=== PATIENT | female | born 1955 | race Caucasian/White ===

== ENCOUNTER 2016-07-16 19:38 | Emergency (ER) | payer OTHER ==
[~2016-07-16] VITALS: Ht 167.6 cm; Wt 63.5 kg
[~2016-07-16 19:38] MED LIST: AZITHROMYCIN250 MG ORAL
[2016-07-16 19:59] VITALS: BP 101/61
[2016-07-16] MEDS ORDERED: TdaP Vaccine 0.5ml Syr IM ONE (20:00)
[2016-07-16] MEDS ORDERED: Lidocaine 1% MPF 10mg/ml 5ml INJ ONE (20:00)
[2016-07-16] MEDS ORDERED: Bacitracin Oint UD TOPIC ONE (20:00)
[2016-07-16 20:49] VITALS: BP 109/67
[2016-07-16 21:03] VITALS: BP 101/61
--- NOTE | 2016-07-16 22:20 | Emergency Room Report ---
History of Present Illness General Chief Complaint: Laceration Source: Patient Present Illness HPI The patient is a 60-year-old female presenting with left index finger laceration which occurred today. Patient states that she was using a new knife which slipped. Patient noticed pain and bleeding of the index finger. Pain is described as a 10/10 sharp sensation it does not radiate from the area. The patient denies numbness or tingling of the finger. The patient denies any other symptoms. Patient is unsure of last tetanus shot Allergies: Coded Allergies: PENICILLINS (Verified Allergy, Intermediate, 11/16/14) Patient History Past Medical History: see triage record Pertinent Family History: none Now: No Reviewed Nursing Documentation: PMH: Agreed, PSxH: Agreed Nursing Documentation-PMH Past Medical History: No Stated History Review of Systems All Other Systems: negative except mentioned in HPI Physical Exam Vital Signs Date Time Temp Pulse Resp B/P Pulse Ox O2 Delivery O2 Flow Rate FiO2 07/16/16 19:45 97.2 71 15 101/61 97 Room Air Sp02 EP Interpretation: reviewed, normal General Appearance: no apparent distress, alert, GCS 15, non-toxic Head: normocephalic, atraumatic Eyes: bilateral eye PERRL, bilateral eye normal inspection Musculoskeletal: gait/station normal, normal range of motion, tender - TTP over L 2nd distal phalanx Neurologic: alert, oriented x3, responsive, motor strength/tone normal, sensory intact, speech normal Psychiatric: judgement/insight normal, memory normal, mood/affect normal, no suicidal/homicidal ideation Skin: warm/dry, normal turgor, laceration - 2cm linear lac to L hand distal 2nd digit Lymphatic: no adenopathy Procedures Laceration/Wound Repair Laceration/Wound Repair : Consent: Verbal Wound Location: upper extremity - L index finger Wound's Depth, Shape: superficial, linear Wound Length (cm): 2 Wound Explored: clean Irrigated w/ Saline (ccs): 100 Betadine Prep?: Yes Anesthesia: 1% Lidocaine - digital block Volume Anesthetic (ccs): 4 Wound Debrided: minimal Wound Repaired With: sutures Suture Size/Type: 5:0, proline Number of Sutures: 3 Layer Closure?: No Sterile Dressing Applied?: Yes Splint Applied?: No Sling Applied?: No Patient Tolerated: Well Complications: None Medical Decision Making PA Attestation Dr. Resendiz is my supervising physician. Patient management was discussed with my supervising physician Diagnostic Impression: Primary Impression: Laceration ER Course The patient is a 60-year-old female presenting with left index finger laceration which occurred today Ddx considered include but not limited to fracture, tendon/ligament injury, avulsion, nerve damage Physical exam: Vitals within normal limits. Left hand: There is a 2 cm linear laceration to the left second digit distal to PIP joint of dorsal hand. No active bleeding. Sensation intact to light touch. Full active range of motion. nail not involved. Patient is given tetanus shot The wound was irrigated with normal saline and cleaned with betadine. A 27g needle was used to administer 4mL of lidocaine without epinephrine was used for digital block. 3 sutures were placed with 5-0 Prolene. The wound was well approximated and the patient tolerated the procedure well. The wound was then cleaned and bacitracin was applied. The patient will be discharged home and given ER precautions. Patient will see primary care physician for suture removal. Last Vital Signs Date Time Temp Pulse Resp B/P Pulse Ox O2 Delivery O2 Flow Rate FiO2 07/16/16 21:03 97.2 76 15 101/61 97 Room Air Status: improved Disposition: HOME, SELF-CARE Condition: Improved Referrals: [employer] [facility],REFERRIN (PCP) Patient Instructions: Laceration Care, Adult Additional Instructions: I discussed my findings with the patient. All questions and concerns have been answered. Treatment and medication compliance have been addressed. I advised the patient that they need to follow up with PMD in 7 days for wound check and suture removal. If you are unable to see PMD, return to the ED in 7 days. Return to ED if pain remains or worsens, you notice discharge from the wound, the wound continues to bleed, the suture/s fall out, you notice a fever or chills, or for any reason. Patient is advised to keep the wound clean and dry. TREASURE SKAGGS Jul 16, 2016 22:20
== END 2016-07-16 21:03 | disposition home or self-care (01) ==
LOC: EMR 20:14
DX: S61.211A Laceration without foreign body of left index finger without damage to nail, initial encounter (principal); W26.0XXA Contact with knife, initial encounter; Y93.9 Activity, unspecified; Y92.9 Unspecified place or not applicable; Z88.0 Allergy status to penicillin
CPT/HCPCS: 12001; 90471; 90715; 99284; Z7502

== ENCOUNTER 2016-07-25 20:15 | Emergency (ER) | payer OTHER ==
[~2016-07-25] VITALS: Ht 165.1 cm; Wt 68.0 kg
[2016-07-25 20:32] VITALS: BP 109/67
[2016-07-25 20:50] VITALS: BP 109/67
--- NOTE | 2016-07-26 13:37 | Emergency Room Report ---
History of Present Illness General Chief Complaint: Wound Recheck/Suture Removal Source: Patient Present Illness HPI Patient is a 60-year-old female who presented after a recent laceration repair. The patient reported having some continued pain numbness to her tip of her finger. She denied any fever. She had not been having any discharge from the wound. Patient had sutures placed approximately 9 days ago. She presented for suture removal. Allergies: Coded Allergies: PENICILLINS (Verified Allergy, Intermediate, 11/16/14) Patient History Past Medical History: see triage record Now: No Reviewed Nursing Documentation: PMH: Agreed, PSxH: Agreed Nursing Documentation-PMH Past Medical History: No Stated History Review of Systems All Other Systems: negative except mentioned in HPI Physical Exam Vital Signs Date Time Temp Pulse Resp B/P Pulse Ox O2 Delivery O2 Flow Rate FiO2 07/25/16 20:28 97.5 63 18 109/67 99 Room Air General Appearance: well appearing, no apparent distress, alert, GCS 15 Head: normocephalic, atraumatic ENT: hearing grossly normal, normal voice Neck: full range of motion, supple Respiratory: no respiratory distress, speaking full sentences Cardiovascular #1: normal inspection Gastrointestinal: normal inspection Musculoskeletal: no calf tenderness Neurologic: normal inspection, alert, oriented x3, responsive, normal gait Psychiatric: mood/affect normal Skin: normal inspection, no rash, other - healed wound, no discharge or erythema Medical Decision Making Diagnostic Impression: Primary Impression: Encounter for removal of sutures ER Course Patient presented for wound check. Differential diagnosis included was not limited to infected wound, nonhealed wound, neuroma, healed wound. Patient's benign exam and does not appear to require any further imaging or laboratory testing at this time. Patient's wound appears to be well-healed Sutures were removed by me. The patient was advised to continue to care for the wound and to return if there were any problems. Last Vital Signs Date Time Temp Pulse Resp B/P Pulse Ox O2 Delivery O2 Flow Rate FiO2 07/25/16 20:50 97.5 79 18 109/67 99 Room Air Status: improved Disposition: HOME, SELF-CARE Condition: Stable Referrals: NON PHYSICIAN (PCP) Patient Instructions: Suture Removal, Care After Dale Sweeney Jul 26, 2016 13:37
== END 2016-07-25 20:50 | disposition home or self-care (01) ==
LOC: EMR 20:40
DX: Z48.02 Encounter for removal of sutures (principal)
CPT/HCPCS: 99282

== ENCOUNTER 2017-05-06 20:28 | Emergency (ER) | payer OTHER ==
[~2017-05-06] VITALS: Ht 167.6 cm; Wt 65.3 kg
--- NOTE | 2017-05-06 21:09 | Emergency Room Report ---
History of Present Illness General Chief Complaint: To Be Triaged Source: Patient Present Illness HPI This is a 61-year-old female with a history hyperlipidemia. She had recent bunion surgery a right foot. She presents with right leg/knee pain onset today. This occurs spontaneously after she tried to get out of the car. No other trauma. No swelling. No fever or chills. Pain is 10 out of 10. Worse with movement. No other injury. Not blood thinner or family history of DVT or PE. Allergies: Coded Allergies: PENICILLINS (Verified Allergy, Intermediate, 11/16/14) Patient History Past Medical History: see triage record, old chart reviewed Past Surgical History: other Pertinent Family History: none Social History: Denies: smoking Now: No Immunizations: other Reviewed Nursing Documentation: PMH: Agreed, PSxH: Agreed Review of Systems Eye: Denies: eye pain, blurred vision ENT: Denies: ear pain, nose congestion, throat swelling Respiratory: Denies: cough, shortness of breath Cardiovascular: Denies: chest pain, palpitations Gastrointestinal: Denies: abdominal pain, diarrhea, nausea, vomiting Musculoskeletal: Reports: joint pain, Denies: back pain Skin: Denies: rash Neurological: Denies: headache, numbness Endocrine: Denies: increased thirst, increased urine Hematologic/Lymphatic: Denies: easy bruising All Other Systems: negative except mentioned in HPI Physical Exam vitals unremarkable Sp02 EP Interpretation: reviewed, normal General Appearance: well appearing, no apparent distress, alert Head: normocephalic, atraumatic Eyes: bilateral eye PERRL, bilateral eye EOMI ENT: hearing grossly normal, normal pharynx Neck: full range of motion, supple, no meningismus Respiratory: chest non-tender, lungs clear, normal breath sounds Cardiovascular #1: regular rate, rhythm, no murmur Gastrointestinal: normal bowel sounds, non tender, no mass, no organomegaly, no bruit, non-distended Musculoskeletal: back normal, normal range of motion, tender - Tender to palpation over the right popliteal area. No pulsatile mass. No calf tenderness. She has A cast on herright foot. Psychiatric: mood/affect normal Skin: warm/dry Medical Decision Making Diagnostic Impression: Primary Impression: Right leg pain ER Course Patient with right knee/leg pain. No evidence of ruptured Cruz's cyst or DVT. Most likely ligament or muscle pain. We'll discharge home. CT/MRI/US Diagnostic Results CT/MRI/US Diagnostic Results : Imaging Test Ordered: US right leg Impression Neg per clerk entry level. Status: improved Disposition: HOME, SELF-CARE Condition: Stable Scripts Ibuprofen* (MOTRIN*) 600 Mg Tablet 600 MG ORAL THREE TIMES A DAY, #30 TAB 0 Refills Prov: LATOYA FRAGA M.D. 05/06/17 Additional Instructions: Follow up with your doctor in 7 days. Return if worse. You may need an MRI if not better. LATOYA FRAGA M.D. May 06, 2017 21:09
[2017-05-06] MEDS ORDERED: Norco 5mg/325mg tab ORAL ONE (21:15)
[2017-05-06] MEDS ORDERED: IBUPROFEN600 MG ORAL (22:13)
[2017-05-06 22:34] VITALS: BP 137/81
--- NOTE | 2017-05-07 14:32 | Diagnostic Imaging Report ---
APPROVED REPORT CPT Code: 65427 Present Symptoms Lower Extremity Pain: Right RIGHT LEG: Venous imaging reveals a patent deep venous system. There is no evidence of thrombus within the femoral, popliteal or tibial segments. The greater saphenous vein is also within normal limits. Doppler indicates normal spontaneous flow within these segments.
== END 2017-05-06 22:34 | disposition home or self-care (01) ==
LOC: EMR 21:13
DX: M79.604 Pain in right leg (principal); E78.5 Hyperlipidemia, unspecified; Z88.0 Allergy status to penicillin
CPT/HCPCS: 93971; 99284

== ENCOUNTER 2019-06-27 09:23 | Outpatient (CLI) | payer MEDICARE, OTHER ==
[~2019-06-27] VITALS: Ht 162.6 cm; Wt 66.7 kg
[~2019-06-27 09:23] MED LIST changes: +IBUPROFEN600 MG ORAL
[2019-06-27] MEDS ORDERED: SIMVASTATIN10 MG ORAL (09:50)
[2019-06-27 13:35] VITALS: BP 114/64
[2019-06-27] MEDS ORDERED: MAGNESIUM250 M2 PO (13:35)
--- NOTE | 2019-06-27 19:45 | Consultation ---
DATE OF CONSULTATION: 06/27/2019 CONSULTING PHYSICIAN: Tr Preston M.D. REFERRING PHYSICIAN: Tr Ramos M.D. CHIEF COMPLAINT: Constipation, screening colonoscopy evaluation. PAST MEDICAL HISTORY: 1. Hypercholesteremia. 2. Chronic constipation. PAST SURGICAL HISTORY: Tonsillectomy. MEDICATIONS: Simvastatin and magnesium. FAMILY HISTORY: No family history of GI malignancies. SOCIAL HISTORY: The patient denies any tobacco, alcohol, or drug abuse. ALLERGIES: To amoxicillin and . REVIEW OF SYSTEMS: Positive for constipation. PHYSICAL EXAMINATION: VITAL SIGNS: Temperature 98, blood pressure 114/64, pulse 60, respirations 20. Height is 5 feet 4 inches. Weight is 147. HEENT: Normocephalic, atraumatic. Sclerae anicteric. NECK: Supple. No adenopathy. CARDIOVASCULAR: Rhythm rate and rhythm. Plus S1, S2. LUNGS: Clear to aucultation bilaterally. ABDOMEN: Positive bowel sounds. Soft and nontender. No rebound. No guarding. No peritoneal sign. EXTREMITIES: No cyanosis. No clubbing. No edema. ASSESSMENT AND PLAN: This is a 63-year-old female with chronic constipation, currently on magnesium with good response. She needs a screening colonoscopy. The patient was given instruction for . The risks and benefits of procedure was explained to her and she agreed. Plan to do colonoscopy next week. I want to thank, Dr. Tr Ramos, for this kind referral. Tr Preston M.D. DR: STACEY JOB#: [id number] CC: Tr Ramos M.D.
== END 2019-06-27 11:23 | disposition home or self-care (01) ==
LOC: PAN 09:23
DX: K59.00 Constipation, unspecified (principal); E78.00 Pure hypercholesterolemia, unspecified; Z79.899 Other long term (current) drug therapy; Z88.0 Allergy status to penicillin

== ENCOUNTER 2019-07-05 07:16 | Day surgery (SDC) | payer MEDICARE, OTHER ==
[~2019-07-05] VITALS: Ht 162.6 cm; Wt 63.5 kg
[2019-07-05] VITALS (9 sets, daily range): BP systolic 110–130; BP diastolic 57–73
[~2019-07-05 07:16] MED LIST changes: +LR 1000ml 1,000 ML IVLG SCH; +MAGNESIUM250 M2 PO; +SIMVASTATIN10 MG ORAL
[2019-07-05] MEDS ORDERED: Propofol 200mg/20ml IV ONE (09:00)
[2019-07-05] MEDS ORDERED: Lidocaine 1% MPF 10mg/ml 5ml ONE (09:00)
[2019-07-05] MEDS ORDERED: LR 1000ml ONE (09:00)
--- NOTE | 2019-07-05 09:19 | Pre-Procedure Note/Attestation ---
Pre-Procedure Note/Attestation Complete Prior to Procedure Planned Procedure: not applicable Procedure Narrative: colonoscopy Indications for Procedure Pre-Operative Diagnosis: screening Attestation I attest that I discussed the nature of the procedure; its benefits; risks and complications; and alternatives (and the risks and benefits of such alternatives ), prior to the procedure, with the patient (or the patient's legal public health representative). I attest that, if there was a reasonable possibility of needing a blood transfusion, the patient (or the patient's legal public health representative) was given the [facility] standardized written summary, pursuant to the [place] Blood Safety Act ([place] Health and Safety Code # 1645, as amended). I attest that I re-evaluated the patient just prior to the surgery and that there has been no change in the patient's H&P, except as documented below: Tr Preston MD Jul 05, 2019 09:19
--- NOTE | 2019-07-05 09:20 | Short Stay Surgery H&P ---
History of Present Illness History of Present Illness Chief Complaint see recent office note HPI Anupam Sandoval is a 63 year old female who was admitted on for Colonoscopy Screening Patient History Allergies: Coded Allergies: PENICILLINS (Verified Allergy, Severe, SKIN RASH, 07/04/19) NUT - UNSPECIFIED (Verified Allergy, Intermediate, rash, 07/05/19) "all kinds" AMOXICILLIN (Verified Allergy, Unknown, 06/27/19) Medication History Scheduled Magnesium Oxide (Magnesium), Unknown Dose PO DAILY, (Reported) Simvastatin (Zocor), Unknown Dose ORAL BEDTIME, (Reported) Review of Systems Cardiovascular: Reports: no symptoms Respiratory: Reports: no symptoms Skeletal: Reports: no symptoms Gastrointestinal: Reports: no symptoms Genitourinary: Reports: no symptoms Neurologic: Reports: no symptoms Endocrine: Reports: no symptoms Hematologic: Reports: no symptoms Physical Exam Vital Signs Last Vital Signs Date Time Temp Pulse Resp B/P (MAP) Pulse Ox O2 Delivery O2 Flow Rate FiO2 07/05/19 08:06 Room Air 07/05/19 08:04 97.3 57 18 123/70 100 Skin: normal HENT: normal Heart: normal Lungs: normal Abdomen: normal Extremities: normal Plan Attestation Are the patient's medical conditions optimized for surgery? Attestation Response: yes Tr Preston MD Jul 05, 2019 09:20
--- NOTE | 2019-07-05 09:36 | Endoscopy Procedure Note ---
Endoscopy Procedure Note General Indication for Procedure: screening Procedures Performed: colonoscopy Operative Findings/Diagnosis: hemorrhoids Specimen: none Pt Tolerated Procedure Well: Yes Estimated Blood Loss: none Anesthesia Anesthesiologist: abhinav Anesthesia: MAC Inserted Devices Implant(s) used?: No Quality Quality of Bowel Preparation: Good Did scope reach the cecum?: Yes Was there any complications?: No GI Core Measures 50 yrs or older w/o bx or poly: No 10yrs. F/U recommended: Yes If not recommended, why?: Above average risk 18 years or older w/prev. colo: No Tr Preston MD Jul 05, 2019 09:36
--- NOTE | 2019-07-05 11:20 | Anethesia Preoperative Eval ---
Anesthesia Pre-op PMH/ROS General Date of Evaluation: Jul 05, 2019 Time of Evaluation: 09:00 Anesthesiologist: nathaniel ASA Score: ASA 1 Mallampati Score Class I : Soft palate, uvula, fauces, pillars visible Class II: Soft palate, uvula, fauces visible Class III: Soft palate, base of uvula visible Class IV: Only hard plate visible Mallampati Classification: Class II Surgeon: julian Diagnosis: screening Surgical Procedure: colonoscopy Anesthesia History: none Family History: no anesthesia problems Allergies: Coded Allergies: PENICILLINS (Verified Allergy, Severe, SKIN RASH, 07/04/19) NUT - UNSPECIFIED (Verified Allergy, Intermediate, rash, 07/05/19) "all kinds" AMOXICILLIN (Verified Allergy, Unknown, 06/27/19) Medications: see eMAR Patient NPO?: Yes NPO Date: Jul 05, 2019 NPO Time: 00:01 Past Medical History Cardiovascular: Denies: HTN, CAD, [place], valve dz, arrhythmia, other Pulmonary: Denies: asthma, COPD, MEGHA, other Gastrointestinal/Genitourinary: Denies: GERD, CRI, ESRD, other Neurologic/Psychiatric: Denies: dementia, CVA, depression/anxiety, TIA, other Endocrine: Denies: DM, hypothyroidism, steroids, other HEENT: Denies: cataract (L), cataract (R), glaucoma, [place] (L), [place] (R), other Hematology/Immune: Denies: anemia, DVT, bleeding disorder, other Musculoskeletal/Integumentary: Denies: OA, RA, DJD, DDD, edema, other PSxH Narrative: Colonoscopy Anesthesia Pre-op Phys. Exam Physician Exam Last Vital Signs Date Time Temp Pulse Resp B/P (MAP) Pulse Ox O2 Delivery O2 Flow Rate FiO2 07/05/19 10:10 97.3 52 14 124/64 100 Room Air 07/05/19 09:50 6 Constitutional: NAD Neurologic: CN 2-12 intact Respiratory: CTA Gastrointestinal: S/NT/ND Airway Exam Mallampati Classification 2 Mallampati Score: Class II MO: full ROM: full Dentures: no upper, no lower Anesthesia Pre-op A/P Studies Pre-op Studies: EKG - SR Risk Assessment & Plan Plan: MAC Status Change Before Surgery: No Pre-Antibiotics Drug: none Jennifer Owens CRNA Jul 05, 2019 11:20
--- NOTE | 2019-07-05 11:21 | Immediate Post-Op Evaluation ---
Immediate Post-Op Evalulation Immediate Post-Op Evalulation Procedure: colonoscopy Date of Evaluation: Jul 05, 2019 Time of Evaluation: 11:21 IV Fluids: 500 Blood Pressure Systolic: 114 Blood Pressure Diastolic: 57 Pulse Rate: 52 Respiratory Rate: 14 O2 Sat by Pulse Oximetry: 98 Temperature (Fahrenheit): 97.4 Nausea: No Vomiting: No Complications none Patient Status: awake, reacts, patent Hydration Status: adequate Drug: none Jennifer Owens CRNA Jul 05, 2019 11:21
--- NOTE | 2019-07-05 11:22 | 48 Hour Post Anesthesia Eval ---
Post Anesthesia Evaluation Procedure: colonoscopy Date of Evaluation: Jul 05, 2019 Time of Evaluation: 11:22 Blood Pressure Systolic: 124 0: 64 Pulse Rate: 54 Respiratory Rate: 14 Temperature (Fahrenheit): 98 O2 Sat by Pulse Oximetry: 98 Airway: patent Nausea: No Vomiting: No Hydration Status: adequate Cardiopulmonary Status: na Mental Status/LOC: patient returned to baseline Post-Anesthesia Complications: none Follow-up care needed: N/A Jennifer Owens CRNA Jul 05, 2019 11:22
--- NOTE | 2019-07-05 15:00 | Procedure Note ---
DATE OF PROCEDURE: 07/05/2019 SURGEON: Tr Preston M.D. REFERRING PHYSICIAN: Tr Ramos M.D. PROCEDURE: Colonoscopy. INDICATION: Screening. ANESTHESIA: Per PROOFER PREPRESS, Jennifer Tarrillizabella. INSTRUMENT: Olympus adult flexible colonoscope. REASON FOR PROCEDURE: The procedure, risks, benefits, and possible consequences, including hemorrhage, aspiration, perforation and infection, and alternative treatments, were explained to the patient/legal guardian by Dr. Tr Preston and the patient/legal guardian understood and accepted these risks. PROCEDURE IN DETAIL: After informed consent was obtained and the patient was adequately sedated, first rectal exam was performed, which was positive for internal hemorrhoids. Then, the scope was advanced from the rectum into the cecum documented by appendix orifice, ileocecal valve, and right upper quadrant palpation. Quality of prep was very good. The patient had normal colonoscopy examination except for some scattered diverticula in the left colon. Retroflexion of rectum showed evidence of small nonbleeding internal hemorrhoids. No obvious polyp was seen in this colonoscopy examination. The patient tolerated the procedure very well without any complication. SUMMARY OF FINDINGS: 1. Internal hemorrhoids. 2. Scattered diverticulosis. RECOMMENDATIONS: At this time, we recommend repeat colonoscopy in 5 years. I want to thank Dr. Tr Ramos for this kind referral. Tr Preston M.D. DR: SASCHA JOB#: [id number] CC: Tr Ramos M.D.
== END 2019-07-05 10:50 | disposition home or self-care (01) ==
LOC: GAS 07:16
DX: Z12.11 Encounter for screening for malignant neoplasm of colon (principal); K64.8 Other hemorrhoids; K57.90 Diverticulosis of intestine, part unspecified, without perforation or abscess without bleeding; Z88.0 Allergy status to penicillin; Z91.018 Allergy to other foods
CPT/HCPCS: G0121; J2704; J7120; 94003; 94150